=== PATIENT | male | born 1945 | race Caucasian/White ===

== ENCOUNTER 2017-05-11 05:12 | Inpatient (IN) | payer OTHER, MEDICARE ==
[~2017-05-11] VITALS: Ht 177.8 cm; Wt 119.7 kg
[~2017-05-11 05:12] MED LIST: AMITRIPTYLINE100 M1 PO; AMITRIPTYLINE100 M2 PO; AMLODIPINE BESYL5 M1 PO; AMOXICILLIN500 MG PO; ASPIRIN EC81 M1 PO; ATORVASTATIN CA20 MG PO; COUMADIN 10 MG10 MG PO; COUMADIN 2 MG TA2 MG PO; COUMADIN 5 MG TA5 MG PO; COUMADIN PO; COUMADIN1 M1 PO; COZAAR 100MG T100 MG PO; DOK100 MG PO; EXFORGE 5 MG-161 TAB PO; FERROUS GLUCON300 MG PO; FERROUS SULFAT325 M3 PO; HYDROCHLOROTH12.5 M3 PO; HYDRODIURIL 112.5 M1 PO; JANTOVEN10 MG PO; LIPITOR20 M2 PO; LOSARTAN POTAS100 M1 PO; LOSARTAN POTAS100 MG PO; LOVENOX120 MG/0.1 SC; LOVENOX40 MG/0.1 SC; LOVENOX60 MG/0.6 SC; MAGNESIUM500 M1 PO; MAGNESIUM500 M2 PO; MELATONIN10 M2 PO; METFORMIN HCL1000 M1 PO; METFORMIN HYD1000 MG PO; METOPROLOL SUCC50 M2 PO; METOPROLOL SUCC50 MG PO; PANTOPRAZOLE SO40 M1 PO; PANTOPRAZOLE SO40 MG PO; PERCOCET 325 MG1 TA2 PO; PERCOCET 5-3251 EACH PO; PREDNISONE10 MG PO; PROAIR HFA8.5 GM INH; SINGULAIR10 M1 PO; SINGULAIR10 MG PO; SYMBICORT 160/41 PUF INH; SYMBICORT 16010.2 GM INH; TOPCARE ASPIRIN81 MG PO; WARFARIN4 MG PO
[2017-05-11 06:28] LABS: PT 12.5 SEC (9.4-12.5)
--- NOTE | 2017-05-11 12:49 | Admission Core Measures ---
Admission Lab Results I reviewed the following labs: Laboratory Tests 05/11 607 Coagulation PT (9.4 - 12.5 SEC) 12.5 INR (0.90 - 1.17) 1.19 H Admission Meds I reviewed the following Meds: Current Medications Sig/Radha Start time Last Medication Dose Stop Time Status Admin Albuterol Sulfate 2 PUF DAILY NEEDED PRN 05/11 1230 AC (Ventolin) Amitriptyline HCl 100 MG AT BEDTIME 05/11 2200 AC (Elavil 50 MG Tablet) Amlodipine Besylate 5 MG QAM 05/12 1000 AC (Norvasc) Aspirin Buffered 81 MG QAM 05/12 1000 AC (Ecotrin) Atorvastatin Calcium 20 MG QPM 05/11 2200 AC (Lipitor) Budesonide/ 2 PUF BID 05/11 220 AC Formoterol Fumarate (Symbicort) Enoxaparin Sodium 32 MG BID 05/12 1000 UNVr (Lovenox) Ferrous Sulfate 325 MG DAILY 05/12 1000 AC (Feosol) Hydrochlorothiazide 12.5 MG QAM 05/12 1000 AC (Hydrodiuril) Losartan Potassium 100 MG QAM 05/12 1000 AC (Cozaar) Magnesium Oxide 400 MG BID 05/11 2200 AC (Mag-Ox) Melatonin 10 MG AT BEDTIME 05/11 2200 AC (Melatonin) Metformin HCl 1,000 MG BID 05/11 2200 AC (Glucophage) Metoprolol Succinate 50 MG QAM 05/12 1000 AC (Toprol Xl) Montelukast Sodium 10 MG QAM 05/12 1000 AC (Singulair) Pantoprazole Sodium 40 MG QAM 05/12 1000 AC (Protonix) Acute Coronary Syndrome Inclusion Criteria ACS Diagnosis No Inpatient Core Measures LDL Reminder: If No, please order W/I first 24hr of stay Congestive Heart Failure Inclusion Criteria CHF Diagnosis No Cerebrovascular accident Inclusion Criteria CVA/TIA Diagnosis No Inpatient Core Measures Bedside Swallow Eval Reminder: If BSE failed, place ST order Antithrombotic Reminder: Order Antithrombotic Medication by end of day 2 Antithrombotic Reminder: Document Reason Antithrombotic Not ordered by end of day 2 AFIB/Flutter Reminder: If Present, add to problem list AFIB/Flutter Reminder: Order Anticoag Medication for pts with AFIB/Flutter Atherosclerosis Reminder: If Present, add to problem list LDL Reminder: If No, please order W/I first 24hr of stay PT Order Reminder: If No, please order Venous thromboembolism Inpatient Core Measures VTE Risk Factors: Age > 40, Surgery [facility] prophylaxis d/t No contraindications No VTE Pharm Prophylaxis d/t No contraindications Inclusion Criteria - Per Current guidelines, there needs to be overlap - treatment for the first 5 days of Warfarin therapy. - Parenteral Anticoagulation (IV or SC) needs to be - given along with Warfarin therapy. VTE Diagnosis No VTE Type NONE VTE Confirmed by (Test) NONE Problem List As ranked by this Provider includes Assessment & Plan 1. 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 MEDS Home Med List Albuterol Sulfate (Proair Hfa) 8.5 GM HFA.AER.AD 2 PUF INH PRN COPD (Reported ) Amitriptyline HCl 100 MG TABLET 1 TAB PO QHS HEADACHES/SLEEP (Reported) Amlodipine Besylate 5 MG TABLET 1 TAB PO QAM BP (Reported) Aspirin (Ecotrin*) 81 MG TABLET.DR 1 TAB PO QAM CAD (Reported) Atorvastatin Calcium (Lipitor) 20 MG TABLET 1 TAB PO QPM CHOLESTEROL ( Reported) Budesonide/Formoterol Fumarate (Symbicort 160-4.5 Mcg Inhaler) 10.2 GM HFA.AER.AD 2 PUF INH BID COPD (Reported) Enoxaparin Sodium (Lovenox) 40 MG/0.4 ML SYRINGE 0.8 ML SC BID BLOOD CLOT ( Reported) Ferrous Sulfate 325 MG TABLET 1 TAB PO BID SUPPLEMENT (Reported) Hydrochlorothiazide 12.5 MG CAPSULE 1 CAP PO QAM DIURETIC (Reported) Losartan Potassium 100 MG TABLET 1 TAB PO QAM BP (Reported) Magnesium Oxide (Magnesium) 500 MG CAPSULE 1 CAP PO BID LEG CRAMPS (Reported) Melatonin 10 MG TABLET 1 TAB PO QHS SLEEP (Reported) Metformin HCl 1,000 MG TABLET 1 TAB PO BID DIABETES (Reported) Metoprolol Succinate 50 MG TAB.ER.24H 1 TAB PO QAM BP (Reported) Montelukast Sodium (Singulair) 10 MG TABLET 1 TAB PO QAM ALLERGIES (Reported) Pantoprazole Sodium 40 MG TABLET.DR 1 TAB PO QAM GI (Reported)
--- NOTE | 2017-05-11 13:40 | Operative Report ---
Operative/Inv Procedure Report Surgery Date: 05/11/17 Name of Procedure: Right common femoral endarterectomy with harvested saphenous vein patch Pre-Operative Diagnosis: PAD with claudication Post-Operative Diagnosis: PAD with claudication Estimated Blood Loss: 50ml to 100ml Surgeon/Reforestation Worker: GERALD DIAS MD, SHAHMOHAMMADI MD,IDALIA (asst.) Anesthesia: general endotracheal tube Complications: None Condition: Stable to PACU Operative Indication: 72-year-old with severe right lower extremity claudication. Risks benefits and alternatives were explained to the patient including bleeding, infection, pain, scar, limb loss, heart attack and . He decided to proceed with intervention. Operative/Procedure Note Note: Patient brought to the operating room and laid supine on the table. A timeout was held accordance with [facility] policy. A longitudinal right femoral incision was made. Sharp dissection was carried down through the skin and subcutaneous interstitial to the femoral sheath. The patient has a history of obesity which caused the dissection to be tedious. The femoral artery was encircled. The proximal mid and distal common femoral as well as the profunda femoris and superficial femoral artery were encircled. Multiple branches were also controlled. Attention was now turned to vein patch harvest. The greater saphenous vein was isolated. Patient has a history of recent dental infection. The vein was dissected free and transected and tied with 2-0 silk sutures proximally and distally. The patient's was bolused with 6000 units of heparin. An 11 blade was then used to open the artery. Using Darby scissors the artery was opened proximally and distally. A [place] elevator was used to excise the plaque. The vein patch was then opened and sewn on the anterior portion of the artery with running 6-0 Prolene sutures. The artery was flushed in all the occluding clamps were removed. Pulsatile flow was noted with the Doppler into the SFA and DFA. Several interrupted Prolene sutures were used for hemostasis. The wound was then closed in layers with Vicryls and nylon was used to close the skin. Skin anushka were used to close the skin as well. Please note an operations and intelligence assistant was required for this case due to its complexity and the lack of a suitable PA or president & ceo. Additional Comments: Please note an operations and intelligence assistant was required for this case due to its complexity and the lack of a suitable PA or president & ceo.
--- NOTE | 2017-05-11 13:46 | PN- Vascular Surgery ---
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 Yes If Yes, Was This Ordered Today? Yes Antibiotics Is Patient on Antibiotics? Yes If Yes: infection (pre op oral infection)
[2017-05-11] MEDS ORDERED: AMOXICILLIN500 M3 PO (14:12)
--- NOTE | 2017-05-11 14:15 | Patient Discharge Instructions ---
Discharge Instructions General Discharge Information You were seen/treated for: femoral artery blockage You had these procedures: right common femoral endarterectomy Watch for these problems: temp>101, increased redness or drainage of wounds Do not soak the wound: Yes No bath, but you may shower: Yes Other wound care: Keep incision clean and dry. Diet Continue normal diet: Yes Activity Activity Self Limited: Yes Acute Coronary Syndrome Inclusion Criteria At DC or during hospital stay patient has or had the following: Discharge Core Measures Meds if any: Prescribed or Continued at Discharge Meds if any: NOT Prescribed or Continued at Discharge Congestive Heart Failure Inclusion Criteria At DC or during hospital stay patient has or had the following: Discharge Core Measures Meds if any: Prescribed or Continued at Discharge Meds if any: NOT Prescribed or Continued at Discharge Cerebrovascular accident Inclusion Criteria At DC or during hospital stay patient has or had the following: CVA/TIA Diagnosis No Discharge Core Measures Meds if any: Prescribed or Continued at Discharge Meds if any: NOT Prescribed or Continued at Discharge Venous thromboembolism Discharge Core Measures - Per Current guidelines, there needs to be overlap - treatment for the first 5 days of Warfarin therapy. - If discharged on Warfarin prior to 5 days of - overlap therapy, the patient will need to be - assessed for post discharge needs including - *Post discharge parental anticoagulation - *Warfarin and/or parental anticoagulation education - *Follow up date to check INR post discharge Meds if any: Prescribed or Continued at Discharge Note: Overlap Therapy is Warfarin and Anticoagulant Meds if any: NOT Prescribed or Continued at Discharge
--- NOTE | 2017-05-11 15:00 | NUR ---
PT ARRIVED TO FLOOR VIA STRETCHER FROM PACU, AO, 3L NC, VSS, R GROIN DSG INTACT, IV PATENT W/ FLUIDS RUNNING, NO C/O PAIN, TOLERATING PO INTAKE, ORIENTED TO ROOM AND CALL LIGHT, ADMISSION COMPLETE, PT'S BELONGING BAGS AND CAN BROUGHT UP, PT APPEARS COMFORTABLE, CALL PRATT WITHIN REACH, AT BEDSIDE.
[2017-05-11 15:01] VITALS: BP 140/60
[2017-05-11 16:58] VITALS: BP 142/60
[2017-05-11 19:01] VITALS: BP 136/70
[2017-05-11 21:00] VITALS: BP 136/62
[2017-05-11 22:55] VITALS: BP 142/62
[2017-05-12 03:32] VITALS: BP 132/56
--- NOTE | 2017-05-12 07:43 | PN- Student ---
MCKNIGHT,ERICA 05/12/17 0734: Subjective Subjective: Patient is sitting up in bed, awake, alert and comfortable, slight headache for 3-4 hours and dry mouth. Denies pain at incision site, n/v/d, chest pain or shortness of breath. Tolerating regular diet. Stands to urinate in urinal, but has not ambulated yet. Is wondering when knee immobilizer can come off. Objective Objective: Vital Signs Result Date Time Pulse Ox 92 05/12 0332 B/P 132/56 05/12 0332 O2 Delivery Nasal Cannula 05/12 332 Temp 98.2 05/12 033 Pulse 75 05/12 0332 Resp 20 05/12 033 O2 Flow Rate 3.0L 05/12 0000 Intake & Output 05/12 0000 05/11 1600 05/11 0800 Intake Total Output Total 200 Balance -200 Output, Urine 200 Patient 264 lb Weight Weight Reported by Patient Measurement Method General: awake, alert, oriented Lungs: CTAB, no wheeze/rhonchi/rales Heart: RRR, soft click audible on auscultation Abdomen: soft, obese, non-distended, normoactive bowel sounds, nontender Extremities: warm, no erythema/edema bilaterally. Slight right calf tenderness to palpation, gross motor function/sensation intact. 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 Dopplerable distal pedal pulses. Plan: DVT ppx - stand to urinate, ? advance to ambulation today if tolerated Lovenox for anticoagulation this am Continue abx for oral infection per Dr. Arredondo Pain management PRN Continue Regular diet ? D/C knee immobilzer Will discuss with attending GERALD GOLDBERG PA-C 05/12/17 0810: Assessment/Plan Plan: Agree with above, headache has resolved, right-sided groin wound has mild swelling and mild ecchymosis into the scrotal region with small amount of dry staining on the dressing and minimal tenderness. No significant calf tenderness , we'll not pursue eval for DVT at this time, continue to monitor symptoms of pain and swelling. Toes are warm with good capillary refill Dopplerable dorsal pedal pulse right side Knee immobilizer discontinued DC IV fluids, as patient tolerating by mouth fluids Lovenox 120 mg twice a day until INR therapeutic, current INR 1.19, give 5 mg of Coumadin tonight. PT evkarley Arredondo to see later today, likely discharge home this afternoon
[2017-05-12 08:09] VITALS: BP 160/80
[2017-05-12 08:40] LABS: PT 12.5 SEC (9.4-12.5)
[2017-05-12 08:43] LABS: ABSOLUTE BASOPHIL COUNT 0 /CUMM (0.0-0.2); ABSOLUTE EOSINOPHIL COUNT 0 /CUMM (0.0-0.7); ABSOLUTE GRANULOCYTE CT 11.3 /CUMM (1.4-6.5); ABSOLUTE LYMPH COUNT 0.7 /CUMM (1.2-3.4); ABSOLUTE MONOCYTE COUNT 1.6 /CUMM (0.10-0.60); BASOPHIL % 0.1 % (0.0-2.0); EOSINOPHIL % 0.1 % (0-5); GRANULOCYTE % 82.9 % (42.2-75.2); HEMATOCRIT 30.5 % (42-52); MEAN CORPUSCULAR HGB 29.4 PG (27.0-31.0); MEAN CORPUSCULAR HGB CONC 32.5 G/DL (33.0-37.0); MEAN CORPUSCULAR VOLUME 90.2 FL (80.0-94.0); MEAN PLATELET VOLUME 9.1 FL (7.4-10.4); PLATELET COUNT 195 /CUMM (130-400); RBC DISTRIBUTION WIDTH 16.2 % (11.5-14.5); RED BLOOD CELL CT 3.38 /CUMM (4.70-6.10); WHITE BLOOD CELL COUNT 13.7 /CUMM (4.8-10.8)
[2017-05-12] MEDS ORDERED: PERCOCET 5-3251 EACH PO (09:03)
--- NOTE | 2017-05-12 09:05 | Surg Short-stay <48hrs Dis Sum ---
Visit Information Visit Dates Admission Date: 05/11/17 Discharge Date: 05/12/17 Surgical Short Stay DC Summary Admission Diagnosis: R common femoral PAD Right common femoral endarterectomy with harvested saphenous vein patch Final Diagnosis: same Procedure(s): Right common femoral endarterectomy with harvested saphenous vein patch Summary/Significant Findings: Pt underwent above procedure due to caudication 2/2 PAD. his postoperative course was unremarkable, progressed quickly, minimal pain, no hematoma, no signs of infection, placed on full dose lovenox for anticoagulation with coumadin until INR is theraputic. cleared PT Condition at Discharge: good Discharge Disposition: home or self care Discharge instructions provided to patient/family: Yes Post discharge follow-up plan: fup in 1 week in office with Dr Arredondo
[2017-05-12 09:46] VITALS: BP 132/56
--- NOTE | 2017-05-12 16:36 | PN- Vascular Surgery ---
Surgical Brief Attending Note Brief Attending Note: VASCULAR ATTENDING NOTE: This 72-year-old male now status post right femoral endarterectomy. No acute events overnight. Denies significant weight. Physical exam: AF/VSS Right groin incision is dry and intact with dressing, right foot is well- perfused. A/P Follow-up as outpatient Lovenox injections and converted to oral Coumadin for history of valve Continue antibiotics as per dentist for gum nfection Continue aspirin therapy
== END 2017-05-12 14:55 | DRG 253 ==
LOC: ERHI 05:12 → SDA 05:12 → 2NA 05:19 → SDA 07:00 → ENRESERV 12:58 → 2NA 14:45
PROVIDERS: Nurse Practitioner; ADMIT Surgery Vascular Surgery
PROC: 06BP0ZZ Excision of Right Saphenous Vein, Open Approach (ICD-10-PCS; principal; 2017-05-11)
PROC: 04UK07Z Supplement Right Femoral Artery with Autologous Tissue Substitute, Open Approach (ICD-10-PCS; principal; 2017-05-11)
PROC: 04CK0ZZ Extirpation of Matter from Right Femoral Artery, Open Approach (ICD-10-PCS; principal; 2017-05-11)
DX: I70.211 Atherosclerosis of native arteries of extremities with intermittent claudication, right leg (principal); I25.810 Atherosclerosis of coronary artery bypass graft(s) without angina pectoris; J44.9 Chronic obstructive pulmonary disease, unspecified; E11.9 Type 2 diabetes mellitus without complications; I10 Essential (primary) hypertension; E78.5 Hyperlipidemia, unspecified; Z95.2 Presence of prosthetic heart valve; Z87.891 Personal history of nicotine dependence; Z95.1 Presence of aortocoronary bypass graft; K21.9 Gastro-esophageal reflux disease without esophagitis; Z79.01 Long term (current) use of anticoagulants; E66.9 Obesity, unspecified; Z68.37 Body mass index [BMI] 37.0-37.9, adult; Z79.84 Long term (current) use of oral hypoglycemic drugs
CPT/HCPCS: 2NAP; 36415; 82436; 88304; 97116-GO; 97161-GP; J0690; J1644; J1650; J2405; J3490; J7042